=== PATIENT | male | born 1960 | race Caucasian/White ===

== ENCOUNTER 2021-05-19 16:38 | Observation (INO) ==
[2021-05-19] MEDS ORDERED: SODIUM CHLORIDE 0.9% 1000ML 1,000 ML IV SCH (17:30)
[2021-05-19] MEDS ORDERED: SODIUM CHLORIDE 0.9% 500 ML IV SCH (17:30)
[2021-05-19] MEDS ORDERED: OPTIRAY 320 125ml IV ONE (17:44)
--- NOTE | 2021-05-19 17:52 | XRay Report ---
SINGLE VIEW CHEST CLINICAL HISTORY: Generalized weakness. FINDINGS: 2 AP, portable, upright chest radiographs are compared to study dated 04/01/2014. The heart i s top normal for projection noting atherosclerotic calcification of the thoracic aorta. There is mild elevation of the right hemidiaphragm. The lungs and pleural spaces are clear. No pneumothorax is see n. The bony thorax is grossly intact. IMPRESSION: No active disease in the chest. ACT 112: Negative or not required by law. Electronically signed by: Jose Connors M.D. 05/19/2021 5:51 PM
[2021-05-19 18:10] LABS: Basophils # (auto) 0.04 K/uL (0-0.2); Basophils % (auto) 0.4 %; Eosinophils # (auto) 0.65 K/uL (0-0.5); Eosinophils % (auto) 6.8 %; Hematocrit (blood only) 44.3 % (42-52); Hemoglobin 15.1 g/dL (14.0-18.0); Immature Granulocytes # (auto) 0.03 K/uL (0.00-0.02); Immature Granulocytes % (auto) 0.3 %; Lymphocytes # (auto) 2.72 K/uL (1.2-3.4); Lymphocytes % (auto) 28.4 %; Mean Corpuscular Hemoglobin 30.7 pg (25-34); Mean Corpuscular Hgb Conc 34.1 g/dL (32-36); Mean Platelet Volume 9.3 fL (7.4-10.4); Monocytes % (auto) 12.5 %; Neutrophils # (auto) 4.94 K/uL (1.4-6.5); Neutrophils % (auto) 51.6 %; Platelet Count 246 K/uL (130-400); RDW Coefficient of Variation 12.6 % (11.5-14.5); RDW Standard Deviation 41.7 fL (36.4-46.3); Red Blood Count 4.92 M/uL (4.7-6.1); White Blood Count 9.58 K/uL (4.8-10.8)
--- NOTE | 2021-05-19 18:22 | CT Scan Report ---
UNENHANCED CT OF THE BRAIN; CT ANGIOGRAM OF THE BRAIN; CT ANGIOGRAM OF THE NECK CLINICAL HISTORY: Strokelike symptoms. COMPARISON STUDY: No priors. TECHNIQUE: Unenhanced axial CT scan of the brain is performed. Subsequently, following the IV adminis tration of 120 of Optiray 320, CT angiogram of the head and neck was performed from the aortic arch t o the vertex. Images are reviewed in the axial, sagittal, and coronal planes. 3-D MIPS images are cre ated and assessed. IV contrast was administered without complication. All measurements were calculate d based on NASCET criteria. A dose lowering technique was utilized adhering to the principles of ALA RA. CT DOSE: 1276.85 mGy.cm FINDINGS: Brain parenchyma: The brain parenchyma is normal in appearance. There is no hemorrhage, mass effect, or evidence of acute territorial ischemia by CT criteria. There is no evidence of enhancing mass lesi on on the angiogram phase images. The ventricles, sulci, and cisterns are normal in configuration. Gr ay-white matter differentiation is preserved. No extra-axial fluid collection is seen. Thoracic aorta: Visualized portions of the thoracic aorta are normal in caliber. The aortic arch demo nstrates standard 3-vessel anatomy. Right carotid arterial system: The right common carotid artery is widely patent, as are the right int ernal and external carotid arteries. Calcified plaque is noted in the carotid bulb. Left carotid arterial system: The left common carotid artery is widely patent, as are the left post graduate intern al and external carotid arteries. Calcified plaque is seen in the carotid bulb. Vertebral arteries: The vertebral arteries are widely patent bilaterally noting left-sided dominance. Subclavian arteries: Widely patent bilaterally. Intracranial vasculature: There is atherosclerotic calcification of the cavernous carotid and vertebr al arteries. The internal carotid arteries are patent at the skull base, as are the anterior and midd le cerebral arteries bilaterally. The vertebrobasilar system and posterior cerebral arteries are wide ly patent. The left vertebral artery is dominant. The right vertebral artery is diminutive. There is no aneurysm, high-grade stenosis, or focal vessel cut off seen throughout the intracranial circulatio n. Jugular veins: Patent bilaterally. Dural sinuses: Patent. Lung apices: Partially visualized upper lobe lung parenchyma appears clear. Soft tissues: The visualized pharyngeal soft tissues are normal in appearance noting angiographic pha se technique. The oropharyngeal airway appears widely patent. The salivary and thyroid glands are nor mal in appearance. No cervical lymphadenopathy is seen. Skeletal structures: The calvarium appears intact. The cervical spine is maintained noting multilevel spondylosis. No lytic or blastic lesion is seen. Orbits: The bony orbits are intact. Orbital contents are normal as visualized. Sinuses and mastoids: The paranasal sinuses are clear. The mastoid air cells are well pneumatized. IMPRESSION: 1 There is no hemorrhage, mass effect, or evidence of acute territorial ischemia by CT criteria. 2. Unremarkable CT angiogram of the brain. 3. Unremarkable CT angiogram of the neck. ACT 112: Negative or not required by law. Electronically signed by: Jose Connors M.D. 05/19/2021 6:21 PM
[2021-05-19 18:33] LABS: Alanine Aminotransferase 37 U/L (12-78); Albumin Level 3.9 gm/dl (3.4-5.0); Aspartate Aminotransferase 26 U/L (15-37); BUN Creatinine Ratio 10.3 (10-20); Blood Urea Nitrogen 11 mg/dl (7-18); Calcium 9.2 mg/dl (8.5-10.1); Carbon Dioxide 28 mmol/L (21-32); Chloride 105 mmol/L (98-107); Creatinine Clr Calc Pharmacy 94.5 ml/min; Est GFR (African American) 86.4 ml/min; Est GFR (Non-African American) 74.5 ml/min; Glucose 93 mg/dl (70-99); Magnesium 2.3 mg/dl (1.8-2.4); Potassium 3.9 mmol/L (3.5-5.1); Sodium 137 mmol/L (136-145)
[2021-05-19 18:44] LABS: Alkaline Phosphatase 69 U/L (45-117); Bilirubin,Total 0.5 mg/dl (0.2-1); Globulin 4.1 gm/dl (2.5-4.0); Troponin I < 0.015 ng/ml (0-0.045)
[2021-05-19] MEDS ORDERED: ASPIRIN CHEW 324 MG PO STA (19:23)
[2021-05-19] MEDS ORDERED: NICOTINE POLACRILEX 2 MG GUM MT PRN (20:47)
--- NOTE | 2021-05-19 20:47 | History & Physical Report ---
Date of Service May 19, 2021 Assessment & Plan (1) Expressive aphasia: Plan: Damian Medina is a 61-year-old male with no significant past medical history who presents for concerns of worsening word finding and speech difficulty over the last 36 hours. Expressive aphasia: -Seemingly improved upon presentation to ED -CT head demonstrating no hemorrhage, mass-effect, or evidence of acute ischemia -CTA head/neck unremarkable -[place] Telestroke called did not recommend TPA based of negative mostly resolved symptoms at that moment in time -MRI in AM -Lipid profile, and A1c in AM Diet: Regular CODE STATUS: Full code History of Present Illness Primary Care Provider: Clay Hillman MD Damian Medina is a 61-year-old male with no significant past medical history who presents for concerns of worsening word finding and speech difficulty over the last 36 hours. Started to notice that he was feeling off sometime afternoon, but generally felt nothing of it. It was not until earlier today when his noticed that he was having difficulty finding words, this caused him significant frustration as he knew the words that he was attempting to say but could not seemingly find them to verbalize. She mostly noticed that he was seemingly only having difficulty with some words, with the rest of his speech being unchanged. Notes that during the day he was feeling achy all over and questionably warm/febrile, but did not have a fever at that point. As a result of this he took a home COVID-19 test which he states come back as negative. As well as, tested negative for COVID-19 in the ED. While in ED, he noticed most of his speech had seemingly returned back to normal, but intermittently with seemingly random specific words he just would not be able to get them out. Denies any recent stressors, or changes. 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 Allergies Allergy/AdvReac Type Severity Reaction Status Date / Time No Known Allergies Allergy Mild NONE Unverified 05/19/21 18:09 Home Medications Medication Instructions Recorded Confirmed Type sildenafil 50 mg tablet 25 - 50 mg PO UD PRN 05/19/21 05/19/21 History Past Med/Surg History Social History Smoking Status: Former smoker Second Hand Exposure: No; Do You Dip or Chew Tobacco: Yes; Tobacco Cessation Education Requested by Patient: No Hx Alcohol Use: Yes Alcohol type: beer Hx Substance Use: No Preferred Language: American Communication Ability: Effective Supervisor [employer] Required: No Beliefs That Will Affect Care: None Current Living Situation: Spouse Other Information That Helps Us Care for You: No Feels Safe at Home: Yes Safety Concerns: Feels Safe At This Time Assistive Devices: Glasses Review of Systems 2 Review of Systems: All systems reviewed & are unremarkable except as noted in HPI & below Physical Exam Constitutional: WD/WN, vitals as above Eyes: PERRL, conjunctivae normal, anicteric sclerae Respiratory: normal respiratory effort, lungs clear to auscultation Auscultation: no crackles, no rales, no rhonchi and no wheezes Cardiovascular: Rate/Rhythm: regular rate and regular rhythm Heart Sounds: no gallop, no murmur and no cardiac rub Vessels: normal peripheral pulses; no JVD Extremities: no edema Gastrointestinal (Abdomen): Inspection/Auscultation: normal bowel sounds; abdomen not distended Percussion/Palpation: abdomen soft; abdomen nontender and no guarding Musculoskeletal: no cyanosis or clubbing, extremities motor strength 5/5 Skin: no rashes, warm and dry Neurologic: PERRL, EOMI, accommodation nl, no face palsy, no dysarthria CN's II-XI intact bilaterally and moves all extremities Psychiatric: Orientation: alert and oriented x 3 Results & Data Results & Data ([facility]) Vital Signs (Past 12 Hours) Vital Signs Temp Pulse Resp BP Pulse Ox 05/19/21 18:22 96 H 20 97 05/19/21 17:49 37.2 C 05/19/21 16:48 36.7 C 96 H 20 149/89 H 97 Laboratory Results 05/19/21 05/19/21 05/19/21 Range/Units 18:25 17:55 17:55 WBC 9.58 (4.8-10.8) K/uL RBC 4.92 (4.7-6.1) M/uL Hgb 15.1 (14.0-18.0) g/dL Hct 44.3 (42-52) % MCV 90.0 (80-100) fL MCH 30.7 (25-34) pg MCHC 34.1 (32-36) g/dL RDW Std Deviation 41.7 (36.4-46.3) fL RDW Coeff of Chris 12.6 (11.5-14.5) % Plt Count 246 (130-400) K/uL MPV 9.3 (7.4-10.4) fL Immature Gran % (Auto) 0.3 % Neut % (Auto) 51.6 % Lymph % (Auto) 28.4 % Ponce % (Auto) 12.5 % Eos % (Auto) 6.8 % Baso % (Auto) 0.4 % Neut # (Auto) 4.94 (1.4-6.5) K/uL Lymph # (Auto) 2.72 (1.2-3.4) K/uL Ponce # (Auto) 1.20 H (0.11-0.59) K/uL Eos # (Auto) 0.65 H (0-0.5) K/uL Baso # (Auto) 0.04 (0-0.2) K/uL Immature Gran # (Auto) 0.03 H (0.00-0.02) K/uL Sodium 137 (136-145) mmol/L Potassium 3.9 (3.5-5.1) mmol/L Chloride 105 (98-107) mmol/L Carbon Dioxide 28 (21-32) mmol/L Anion Gap 4.0 (3-11) BUN 11 (7-18) mg/dl Creatinine 1.07 (0.6-1.4) mg/dl Est Cr Clr Drug Dosing 94.5 ml/min Est GFR ( Amer) 86.4 ml/min Est GFR (Non-Af Amer) 74.5 ml/min BUN/Creatinine Ratio 10.3 (10-20) Glucose 93 (70-99) mg/dl POC Glucose 88 (70-99) mg/dl Calcium 9.2 (8.5-10.1) mg/dl Magnesium 2.3 (1.8-2.4) mg/dl Total Bilirubin 0.5 (0.2-1) mg/dl AST 26 (15-37) U/L ALT 37 (12-78) U/L Alkaline Phosphatase 69 (45-117) U/L Troponin I < 0.015 (0-0.045) ng/ml Total Protein 8.0 (6.4-8.2) gm/dl Albumin 3.9 (3.4-5.0) gm/dl Globulin 4.1 H (2.5-4.0) gm/dl Albumin/Globulin Ratio 1.0 (0.9-2) TSH 1.280 (0.300-4.500) uIu/ml COVID-19 Eval Order SARS-CoV-2 (PCR) (Negative) 05/19/21 05/19/21 Range/Units 17:49 17:49 WBC (4.8-10.8) K/uL RBC (4.7-6.1) M/uL Hgb (14.0-18.0) g/dL Hct (42-52) % MCV (80-100) fL MCH (25-34) pg MCHC (32-36) g/dL RDW Std Deviation (36.4-46.3) fL RDW Coeff of Chris (11.5-14.5) % Plt Count (130-400) K/uL MPV (7.4-10.4) fL Immature Gran % (Auto) % Neut % (Auto) % Lymph % (Auto) % Ponce % (Auto) % Eos % (Auto) % Baso % (Auto) % Neut # (Auto) (1.4-6.5) K/uL Lymph # (Auto) (1.2-3.4) K/uL Ponce # (Auto) (0.11-0.59) K/uL Eos # (Auto) (0-0.5) K/uL Baso # (Auto) (0-0.2) K/uL Immature Gran # (Auto) (0.00-0.02) K/uL Sodium (136-145) mmol/L Potassium (3.5-5.1) mmol/L Chloride (98-107) mmol/L Carbon Dioxide (21-32) mmol/L Anion Gap (3-11) BUN (7-18) mg/dl Creatinine (0.6-1.4) mg/dl Est Cr Clr Drug Dosing ml/min Est GFR ( Amer) ml/min Est GFR (Non-Af Amer) ml/min BUN/Creatinine Ratio (10-20) Glucose (70-99) mg/dl POC Glucose (70-99) mg/dl Calcium (8.5-10.1) mg/dl Magnesium (1.8-2.4) mg/dl Total Bilirubin (0.2-1) mg/dl AST (15-37) U/L ALT (12-78) U/L Alkaline Phosphatase (45-117) U/L Troponin I (0-0.045) ng/ml Total Protein (6.4-8.2) gm/dl Albumin (3.4-5.0) gm/dl Globulin (2.5-4.0) gm/dl Albumin/Globulin Ratio (0.9-2) TSH (0.300-4.500) uIu/ml COVID-19 Eval Order Covid19 at [facility] SARS-CoV-2 (PCR) NEGATIVE (Negative) Diagnostic Findings Impressions Chest X-Ray 05/19/21 17:21 SINGLE VIEW CHEST CLINICAL HISTORY: Generalized weakness. FINDINGS: 2 AP, portable, upright chest radiographs are compared to study dated 04/01/2014. The heart is top normal for projection noting atherosclerotic calcification of the thoracic aorta. There is mild elevation of the right hemidiaphragm. The lungs and pleural spaces are clear. No pneumothorax is seen. The bony thorax is grossly intact. IMPRESSION: No active disease in the chest. ACT 112: Negative or not required by law. Electronically signed by: Jose Connors M.D. 05/19/2021 5:[address] 05/19/21 17:[address] OF THE BRAIN; CT ANGIOGRAM OF THE BRAIN; CT ANGIOGRAM OF THE NECK CLINICAL HISTORY: Strokelike symptoms. COMPARISON STUDY: No priors. TECHNIQUE: Unenhanced axial CT scan of the brain is performed. Subsequently, following the IV administration of 120 of Optiray 320, CT angiogram of the head and neck was performed from the aortic arch to the vertex. Images are reviewed in the axial, sagittal, and coronal planes. 3-D MIPS images are created and assessed. IV contrast was administered without complication. All measurements were calculated based on NASCET criteria. A dose lowering technique was utilized adhering to the principles of ALARA. CT DOSE: 1276.85 mGy.cm FINDINGS: Brain parenchyma: The brain parenchyma is normal in appearance. There is no hemorrhage, mass effect, or evidence of acute territorial ischemia by CT criteria. There is no evidence of enhancing mass lesion on the angiogram phase images. The ventricles, sulci, and cisterns are normal in configuration. Infante- white matter differentiation is preserved. No extra-axial fluid collection is seen. Thoracic aorta: Visualized portions of the thoracic aorta are normal in caliber. The aortic arch demonstrates standard 3-vessel anatomy. Right carotid arterial system: The right common carotid artery is widely patent, as are the right internal and external carotid arteries. Calcified plaque is noted in the carotid bulb. Left carotid arterial system: The left common carotid artery is widely patent, as are the left internal and external carotid arteries. Calcified plaque is seen in the carotid bulb. Vertebral arteries: The vertebral arteries are widely patent bilaterally noting left-sided dominance. Subclavian arteries: Widely patent bilaterally. Intracranial vasculature: There is atherosclerotic calcification of the cavernous carotid and vertebral arteries. The internal carotid arteries are patent at the skull base, as are the anterior and middle cerebral arteries bilaterally. The vertebrobasilar system and posterior cerebral arteries are widely patent. The left vertebral artery is dominant. The right vertebral artery is diminutive. There is no aneurysm, high-grade stenosis, or focal vessel cut off seen throughout the intracranial circulation. Jugular veins: Patent bilaterally. Dural sinuses: Patent. Lung apices: Partially visualized upper lobe lung parenchyma appears clear. Soft tissues: The visualized pharyngeal soft tissues are normal in appearance noting angiographic phase technique. The oropharyngeal airway appears widely patent. The salivary and thyroid glands are normal in appearance. No cervical lymphadenopathy is seen. Skeletal structures: The calvarium appears intact. The cervical spine is maintained noting multilevel spondylosis. No lytic or blastic lesion is seen. Orbits: The bony orbits are intact. Orbital contents are normal as visualized. Sinuses and mastoids: The paranasal sinuses are clear. The mastoid air cells are well pneumatized. IMPRESSION: 1 There is no hemorrhage, mass effect, or evidence of acute territorial ischemia by CT criteria. 2. Unremarkable CT angiogram of the brain. 3. Unremarkable CT angiogram of the neck. ACT 112: Negative or not required by law. Electronically signed by: Jose Connors M.D. 05/19/2021 6:21 PM Head CTA 05/19/21 17:[address] OF THE BRAIN; CT ANGIOGRAM OF THE BRAIN; CT ANGIOGRAM OF THE NECK CLINICAL HISTORY: Strokelike symptoms. COMPARISON STUDY: No priors. TECHNIQUE: Unenhanced axial CT scan of the brain is performed. Subsequently, following the IV administration of 120 of Optiray 320, CT angiogram of the head and neck was performed from the aortic arch to the vertex. Images are reviewed in the axial, sagittal, and coronal planes. 3-D MIPS images are created and assessed. IV contrast was administered without complication. All measurements were calculated based on NASCET criteria. A dose lowering technique was utilized adhering to the principles of ALARA. CT DOSE: 1276.85 mGy.cm FINDINGS: Brain parenchyma: The brain parenchyma is normal in appearance. There is no hemorrhage, mass effect, or evidence of acute territorial ischemia by CT criteria. There is no evidence of enhancing mass lesion on the angiogram phase images. The ventricles, sulci, and cisterns are normal in configuration. Infante- white matter differentiation is preserved. No extra-axial fluid collection is seen. Thoracic aorta: Visualized portions of the thoracic aorta are normal in caliber. The aortic arch demonstrates standard 3-vessel anatomy. Right carotid arterial system: The right common carotid artery is widely patent, as are the right internal and external carotid arteries. Calcified plaque is noted in the carotid bulb. Left carotid arterial system: The left common carotid artery is widely patent, as are the left internal and external carotid arteries. Calcified plaque is seen in the carotid bulb. Vertebral arteries: The vertebral arteries are widely patent bilaterally noting left-sided dominance. Subclavian arteries: Widely patent bilaterally. Intracranial vasculature: There is atherosclerotic calcification of the cavernous carotid and vertebral arteries. The internal carotid arteries are patent at the skull base, as are the anterior and middle cerebral arteries bilaterally. The vertebrobasilar system and posterior cerebral arteries are widely patent. The left vertebral artery is dominant. The right vertebral artery is diminutive. There is no aneurysm, high-grade stenosis, or focal vessel cut off seen throughout the intracranial circulation. Jugular veins: Patent bilaterally. Dural sinuses: Patent. Lung apices: Partially visualized upper lobe lung parenchyma appears clear. Soft tissues: The visualized pharyngeal soft tissues are normal in appearance noting angiographic phase technique. The oropharyngeal airway appears widely patent. The salivary and thyroid glands are normal in appearance. No cervical lymphadenopathy is seen. Skeletal structures: The calvarium appears intact. The cervical spine is maintained noting multilevel spondylosis. No lytic or blastic lesion is seen. Orbits: The bony orbits are intact. Orbital contents are normal as visualized. Sinuses and mastoids: The paranasal sinuses are clear. The mastoid air cells are well pneumatized. IMPRESSION: 1 There is no hemorrhage, mass effect, or evidence of acute territorial ischemia by CT criteria. 2. Unremarkable CT angiogram of the brain. 3. Unremarkable CT angiogram of the neck. ACT 112: Negative or not required by law. Electronically signed by: Jose Connors M.D. 05/19/2021 6:21 PM Neck CTA 05/19/21 17:[address] OF THE BRAIN; CT ANGIOGRAM OF THE BRAIN; CT ANGIOGRAM OF THE NECK CLINICAL HISTORY: Strokelike symptoms. COMPARISON STUDY: No priors. TECHNIQUE: Unenhanced axial CT scan of the brain is performed. Subsequently, following the IV administration of 120 of Optiray 320, CT angiogram of the head and neck was performed from the aortic arch to the vertex. Images are reviewed in the axial, sagittal, and coronal planes. 3-D MIPS images are created and assessed. IV contrast was administered without complication. All measurements were calculated based on NASCET criteria. A dose lowering technique was utilized adhering to the principles of ALARA. CT DOSE: 1276.85 mGy.cm FINDINGS: Brain parenchyma: The brain parenchyma is normal in appearance. There is no hemorrhage, mass effect, or evidence of acute territorial ischemia by CT criteria. There is no evidence of enhancing mass lesion on the angiogram phase images. The ventricles, sulci, and cisterns are normal in configuration. Infante- white matter differentiation is preserved. No extra-axial fluid collection is seen. Thoracic aorta: Visualized portions of the thoracic aorta are normal in caliber. The aortic arch demonstrates standard 3-vessel anatomy. Right carotid arterial system: The right common carotid artery is widely patent, as are the right internal and external carotid arteries. Calcified plaque is noted in the carotid bulb. Left carotid arterial system: The left common carotid artery is widely patent, as are the left internal and external carotid arteries. Calcified plaque is seen in the carotid bulb. Vertebral arteries: The vertebral arteries are widely patent bilaterally noting left-sided dominance. Subclavian arteries: Widely patent bilaterally. Intracranial vasculature: There is atherosclerotic calcification of the cavernous carotid and vertebral arteries. The internal carotid arteries are patent at the skull base, as are the anterior and middle cerebral arteries bilaterally. The vertebrobasilar system and posterior cerebral arteries are widely patent. The left vertebral artery is dominant. The right vertebral artery is diminutive. There is no aneurysm, high-grade stenosis, or focal vessel cut off seen throughout the intracranial circulation. Jugular veins: Patent bilaterally. Dural sinuses: Patent. Lung apices: Partially visualized upper lobe lung parenchyma appears clear. Soft tissues: The visualized pharyngeal soft tissues are normal in appearance noting angiographic phase technique. The oropharyngeal airway appears widely patent. The salivary and thyroid glands are normal in appearance. No cervical lymphadenopathy is seen. Skeletal structures: The calvarium appears intact. The cervical spine is maintained noting multilevel spondylosis. No lytic or blastic lesion is seen. Orbits: The bony orbits are intact. Orbital contents are normal as visualized. Sinuses and mastoids: The paranasal sinuses are clear. The mastoid air cells are well pneumatized. IMPRESSION: 1 There is no hemorrhage, mass effect, or evidence of acute territorial ischemia by CT criteria. 2. Unremarkable CT angiogram of the brain. 3. Unremarkable CT angiogram of the neck. ACT 112: Negative or not required by law. Electronically signed by: Jose Connors M.D. 05/19/2021 6:21 PM Medications Administered Home Medication List Medication Instructions Recorded sildenafil 50 mg tablet 25 - 50 mg PO UD PRN 05/19/21 Supervising Physician Co-Signing Physician Notes Attending addendum: I have physically seen this patient, have supervised the medical residents activities, and agree with the H&P unless as otherwise noted. Assessment and Plan: Expressive aphasia- Episode resolved prior to arrival to the ED CT head negative CTA head neck negative [facility] telestroke did not recommend TPA due to resolution of symptoms Stroke without TPA order set MRI brain without contrast in a.m. Consult PT/OT/speech/neurology Check a fasting lipid panel and hemoglobin A1c in a.m. Remaining orders and notations as noted Resident Activity Tracking Resident Involvement: Resident Care Provided Care Provided: Adult [facility]
--- NOTE | 2021-05-19 22:10 | Emergency Department Note ---
Impression & Plan Expressive aphasia ED Provider Note INFORMANT: Patient ED PROVIDER(S): Marcel Wyman MD CHIEF COMPLAINT: Expressive aphasia PLAN: Disposition: Admitted Condition: Good Outpatient prescription management: none Referral: None MEDICAL DECISION MAKING: Patient presented to emergency department complaining of difficulty speaking. He was made a stroke alert. The patient had a nonfocal examination and was not experiencing expressive aphasia while here in the emergency department. The patient had an unremarkable head CT and angiography testing. A consult was placed with Dr. Ojeda of [facility]. We discussed the case. In light of his minimal symptoms and the fact that they had resolved at this point he did not recommend TPA. She has for the patient to be monitored. We agreed on fluids, aspirin, and stroke work-up in the hospital. Consultation was made with Dr. Rico Carroll of the [facility] service. Patient was evaluated in the ER for further management. Of testing negative. Triage Nursing notes reviewed and agree them. Vital Signs: reviewed and remarkable for hypertension Differential diagnosis: CVA, TIA, COVID-19, nfection, dehydration, metabolic abnormality, hypo/hyperglycemia, electrolyte disturbance, anemia, hypoxia, cardiac sources, intracerebral event, toxicologic, neurologic, as well as other pathologies. Diagnostics interpreted by me: ECG: Twelve-lead ECG reveals sinus rhythm with PACs at 85 bpm. Noted elevation or depression. No PVCs. Normal axis. Cardiac Monitoring: Cardiac monitoring ordered by me: The patient was placed on continuous cardiac monitoring and observed. It revealed a normal sinus rhythm at 75 beats per minute without dysrhythmia. Imaging studies: CT and CT angiography as noted above. I refer you to the EMR for further details. HPI: The patient is a 61 year old male who presents to the Emergency Room with complaints of difficulty speaking. This started about 2 hours prior to arrival and is intermittent. The patient notes he is having trouble getting his words out. He was concerned about a stroke and came to the ER for evaluation.. The patient also notes the following associated symptoms, feeling achy and flulike over the last few days. The patient did have a Covid exposure 2 weeks ago. He did take a Covid test at home and it was negative. The patient has taken no medication for relieving factors. Current pain is rated as 0/10. No prior history of stroke. Pt denies LOC, headache, chills, diaphoresis, visual changes, neck pain, chest pain, breathing difficulties, nausea, vomiting, abdominal pain, back pain, melena, hematochezia, urinary symptoms, numbness, weakness, lymphadenopathy, rash, or other complaints. ROS: See above HPI for pertinent positives & negatives. A total of 10 systems reviewed and were otherwise negative. 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 Oropharynx unremarkable. EYES: Normal conjunctiva. Sclera non-icteric. NECK: Inspection normal. Non-tender. Supple. No nuchal rigidity. FROM. No masses. RESPIRATORY: Clear to auscultation. No wheezes. No rales. Normal respiratory effort. CARDIAC: Normal rate. Normal rhythm. No murmurs. No rubs. Extremities warm and well perfused. Pulses equal. No JVD. GI: Soft, non-distended. No tenderness to palpation. No rebound or guarding. No masses. RECTAL: Deferred. MUSCULOSKELETAL: Atraumatic. Chest examination reveals no tenderness. The back is symmetrical on inspection without obvious abnormality. There is no CVA tenderness to palpation. No joint edema. LOWER EXTREMITIES: Calves are equal size bilaterally and non-tender. No edema. No discoloration. NEURO: Normal sensorium. No sensory or motor deficits noted. Cranial nerves II through XII intact. No drift. Normal rapid alternating movements. SKIN: No rash or jaundice noted. Marcel Wyman MD Past Med/Surg History Social History Smoking Status: Never smoker Preferred Language: Filipino Feels Safe at Home: Yes Allergies Allergies Allergy/AdvReac Type Severity Reaction Status Date / Time No Known Allergies Allergy Mild NONE Unverified 05/19/21 18:09 Home Meds Home Medications Medication Instructions Recorded Confirmed sildenafil 50 mg tablet 25 - 50 mg PO UD PRN 05/19/21 05/19/21 Results & Data (ED) Vital Signs Vital Signs - 24 hr 05/19/21 16:48 05/19/21 17:49 05/19/21 18:22 Temperature 36.7 C 37.2 C Temperature Source Oral Oral Pulse Rate 96 H 96 H Pulse Rate from SpO2 Sensor Pulse Rhythm Regular Regular Pulse Strength Normal Respiratory Rate 20 20 Respiratory Effort / Characteristics Non-Labored Respiratory Depth Normal Respiratory Pattern Regular Blood Pressure 149/89 H Blood Pressure Mean 109 Blood Pressure Position Sitting Pulse Oximetry 97 97 Oxygen Delivery Method Room Air Room Air Sepsis Recent Fever Within 48 Hours No Sepsis New/Unexplained Change in Mental Status N/A Sepsis Action Taken by Nursing No Action Required 05/19/21 18:30 05/19/21 19:00 05/19/21 19:30 Temperature Temperature Source Pulse Rate 76 79 74 Pulse Rate from SpO2 Sensor 76 79 75 Pulse Rhythm Pulse Strength Respiratory Rate 15 13 15 Respiratory Effort / Characteristics Respiratory Depth Respiratory Pattern Blood Pressure 171/96 H 174/107 H 161/103 H Blood Pressure Mean 121 129 122 Blood Pressure Position Pulse Oximetry 97 98 96 Oxygen Delivery Method Room Air Room Air Sepsis Recent Fever Within 48 Hours Sepsis New/Unexplained Change in Mental Status Sepsis Action Taken by Nursing 05/19/21 19:44 05/19/21 20:00 05/19/21 20:30 Temperature Temperature Source Pulse Rate 80 78 82 Pulse Rate from SpO2 Sensor 80 78 79 Pulse Rhythm Pulse Strength Respiratory Rate 23 21 17 Respiratory Effort / Characteristics Respiratory Depth Respiratory Pattern Blood Pressure 168/98 H 164/98 H 188/116 H Blood Pressure Mean 121 120 140 Blood Pressure Position Pulse Oximetry 97 97 99 Oxygen Delivery Method Room Air Sepsis Recent Fever Within 48 Hours Sepsis New/Unexplained Change in Mental Status Sepsis Action Taken by Nursing 05/19/21 21:00 05/19/21 21:30 05/19/21 22:00 Temperature Temperature Source Pulse Rate 75 75 70 Pulse Rate from SpO2 Sensor 75 76 70 Pulse Rhythm Pulse Strength Respiratory Rate 13 19 11 L Respiratory Effort / Characteristics Respiratory Depth Respiratory Pattern Blood Pressure 180/100 H 184/109 H 173/97 H Blood Pressure Mean 126 134 122 Blood Pressure Position Pulse Oximetry 97 97 96 Oxygen Delivery Method Room Air Room Air Sepsis Recent Fever Within 48 Hours Sepsis New/Unexplained Change in Mental Status Sepsis Action Taken by Nursing Laboratory Data Result diagrams: 05/19/21 17:55 05/19/21 17:55 Lab Results 05/19/21 05/19/21 05/19/21 Range/Units 17:49 17:49 17:55 WBC (4.8-10.8) K/uL RBC (4.7-6.1) M/uL Hgb (14.0-18.0) g/dL Hct (42-52) % MCV (80-100) fL MCH (25-34) pg MCHC (32-36) g/dL RDW Std Deviation (36.4-46.3) fL RDW Coeff of Chris (11.5-14.5) % Plt Count (130-400) K/uL MPV (7.4-10.4) fL Immature Gran % (Auto) % Neut % (Auto) % Lymph % (Auto) % [place] % (Auto) % Eos % (Auto) % Baso % (Auto) % Neut # (Auto) (1.4-6.5) K/uL Lymph # (Auto) (1.2-3.4) K/uL [place] # (Auto) (0.11-0.59) K/uL Eos # (Auto) (0-0.5) K/uL Baso # (Auto) (0-0.2) K/uL Immature Gran # (Auto) (0.00-0.02) K/uL Sodium 137 (136-145) mmol/L Potassium 3.9 (3.5-5.1) mmol/L Chloride 105 (98-107) mmol/L Carbon Dioxide 28 (21-32) mmol/L Anion Gap 4.0 (3-11) BUN 11 (7-18) mg/dl Creatinine 1.07 (0.6-1.4) mg/dl Est Cr Clr Drug Dosing 94.5 ml/min Est GFR ( Amer) 86.4 ml/min Est GFR (Non-Af Amer) 74.5 ml/min BUN/Creatinine Ratio 10.3 (10-20) Glucose 93 (70-99) mg/dl POC Glucose (70-99) mg/dl Calcium 9.2 (8.5-10.1) mg/dl Magnesium 2.3 (1.8-2.4) mg/dl Total Bilirubin 0.5 (0.2-1) mg/dl AST 26 (15-37) U/L ALT 37 (12-78) U/L Alkaline Phosphatase 69 (45-117) U/L Troponin I < 0.015 (0-0.045) ng/ml Total Protein 8.0 (6.4-8.2) gm/dl Albumin 3.9 (3.4-5.0) gm/dl Globulin 4.1 H (2.5-4.0) gm/dl Albumin/Globulin Ratio 1.0 (0.9-2) TSH 1.280 (0.300-4.500) uIu/ml COVID-19 Eval Order Covid19 at [facility] SARS-CoV-2 (PCR) NEGATIVE (Negative) 05/19/21 05/19/21 Range/Units 17:55 18:25 WBC 9.58 (4.8-10.8) K/uL RBC 4.92 (4.7-6.1) M/uL Hgb 15.1 (14.0-18.0) g/dL Hct 44.3 (42-52) % MCV 90.0 (80-100) fL MCH 30.7 (25-34) pg MCHC 34.1 (32-36) g/dL RDW Std Deviation 41.7 (36.4-46.3) fL RDW Coeff of Chris 12.6 (11.5-14.5) % Plt Count 246 (130-400) K/uL MPV 9.3 (7.4-10.4) fL Immature Gran % (Auto) 0.3 % Neut % (Auto) 51.6 % Lymph % (Auto) 28.4 % [place] % (Auto) 12.5 % Eos % (Auto) 6.8 % Baso % (Auto) 0.4 % Neut # (Auto) 4.94 (1.4-6.5) K/uL Lymph # (Auto) 2.72 (1.2-3.4) K/uL [place] # (Auto) 1.20 H (0.11-0.59) K/uL Eos # (Auto) 0.65 H (0-0.5) K/uL Baso # (Auto) 0.04 (0-0.2) K/uL Immature Gran # (Auto) 0.03 H (0.00-0.02) K/uL Sodium (136-145) mmol/L Potassium (3.5-5.1) mmol/L Chloride (98-107) mmol/L Carbon Dioxide (21-32) mmol/L Anion Gap (3-11) BUN (7-18) mg/dl Creatinine (0.6-1.4) mg/dl Est Cr Clr Drug Dosing ml/min Est GFR ( Amer) ml/min Est GFR (Non-Af Amer) ml/min BUN/Creatinine Ratio (10-20) Glucose (70-99) mg/dl POC Glucose 88 (70-99) mg/dl Calcium (8.5-10.1) mg/dl Magnesium (1.8-2.4) mg/dl Total Bilirubin (0.2-1) mg/dl AST (15-37) U/L ALT (12-78) U/L Alkaline Phosphatase (45-117) U/L Troponin I (0-0.045) ng/ml Total Protein (6.4-8.2) gm/dl Albumin (3.4-5.0) gm/dl Globulin (2.5-4.0) gm/dl Albumin/Globulin Ratio (0.9-2) TSH (0.300-4.500) uIu/ml COVID-19 Eval Order SARS-CoV-2 (PCR) (Negative) Administered Medications Sodium Chloride (Nss 1000ml) 1,000 mls @ 125 mls/hr IV .Q8H ISABEL Stop: 05/20/21 01:29 Last Admin: 05/19/21 20:02 Dose: 125 mls/hr Documented by: [id number] Discontinued Medications Aspirin (Aspirin Chew 324 Mg) 324 mg PO NOW STA Stop: 05/19/21 19:24 Last Admin: 05/19/21 19:58 Dose: 324 mg Documented by: [id number] Sodium Chloride (Nss) 500 mls @ 999 mls/hr IV .Q31M ISABEL Stop: 05/19/21 18:00 Last Infusion: 05/19/21 20:02 Dose: 0 mls/hr Documented by: [id number] Admin: 05/19/21 18:29 Dose: 999 mls/hr Documented by: [id number] Ioversol (Optiray 320 125ml) 120 ml IV ONCE ONE Stop: 05/19/21 17:45 Last Admin: 05/19/21 17:44 Dose: 120 ml Documented by: [id number] Imaging Data Radiologist's Impression: Chest X-Ray 05/19/21 17:21 SINGLE VIEW CHEST CLINICAL HISTORY: Generalized weakness. FINDINGS: 2 AP, portable, upright chest radiographs are compared to study dated 04/01/2014. The heart is top normal for projection noting atherosclerotic calcification of the thoracic aorta. There is mild elevation of the right hemidiaphragm. The lungs and pleural spaces are clear. No pneumothorax is seen. The bony thorax is grossly intact. IMPRESSION: No active disease in the chest. ACT 112: Negative or not required by law. Electronically signed by: Jose Connors M.D. 05/19/2021 5:[address] 05/19/21 17:[address] OF THE BRAIN; CT ANGIOGRAM OF THE BRAIN; CT ANGIOGRAM OF THE NECK CLINICAL HISTORY: Strokelike symptoms. COMPARISON STUDY: No priors. TECHNIQUE: Unenhanced axial CT scan of the brain is performed. Subsequently, following the IV administration of 120 of Optiray 320, CT angiogram of the head and neck was performed from the aortic arch to the vertex. Images are reviewed in the axial, sagittal, and coronal planes. 3-D MIPS images are created and assessed. IV contrast was administered without complication. All measurements were calculated based on NASCET criteria. A dose lowering technique was utilized adhering to the principles of ALARA. CT DOSE: 1276.85 mGy.cm FINDINGS: Brain parenchyma: The brain parenchyma is normal in appearance. There is no hemorrhage, mass effect, or evidence of acute territorial ischemia by CT criteria. There is no evidence of enhancing mass lesion on the angiogram phase images. The ventricles, sulci, and cisterns are normal in configuration. Infante- white matter differentiation is preserved. No extra-axial fluid collection is seen. Thoracic aorta: Visualized portions of the thoracic aorta are normal in caliber. The aortic arch demonstrates standard 3-vessel anatomy. Right carotid arterial system: The right common carotid artery is widely patent, as are the right internal and external carotid arteries. Calcified plaque is noted in the carotid bulb. Left carotid arterial system: The left common carotid artery is widely patent, as are the left internal and external carotid arteries. Calcified plaque is seen in the carotid bulb. Vertebral arteries: The vertebral arteries are widely patent bilaterally noting left-sided dominance. Subclavian arteries: Widely patent bilaterally. Intracranial vasculature: There is atherosclerotic calcification of the malik nous carotid and vertebral arteries. The internal carotid arteries are patent at the skull base, as are the anterior and middle cerebral arteries bilaterally. The vertebrobasilar system and posterior cerebral arteries are widely patent. The left vertebral artery is dominant. The right vertebral artery is diminutive. There is no aneurysm, high-grade stenosis, or focal vessel cut off seen throughout the intracranial circulation. Jugular veins: Patent bilaterally. Dural sinuses: Patent. Lung apices: Partially visualized upper lobe lung parenchyma appears clear. Soft tissues: The visualized pharyngeal soft tissues are normal in appearance noting angiographic phase technique. The oropharyngeal airway appears widely patent. The salivary and thyroid glands are normal in appearance. No cervical lymphadenopathy is seen. Skeletal structures: The calvarium appears intact. The cervical spine is maintained noting multilevel spondylosis. No lytic or blastic lesion is seen. Orbits: The bony orbits are intact. Orbital contents are normal as visualized. Sinuses and mastoids: The paranasal sinuses are clear. The mastoid air cells are well pneumatized. IMPRESSION: 1 There is no hemorrhage, mass effect, or evidence of acute territorial ischemia by CT criteria. 2. Unremarkable CT angiogram of the brain. 3. Unremarkable CT angiogram of the neck. ACT 112: Negative or not required by law. Electronically signed by: Jose Connors M.D. 05/19/2021 6:21 PM Head CTA 05/19/21 17:[address] OF THE BRAIN; CT ANGIOGRAM OF THE BRAIN; CT ANGIOGRAM OF THE NECK CLINICAL HISTORY: Strokelike symptoms. COMPARISON STUDY: No priors. TECHNIQUE: Unenhanced axial CT scan of the brain is performed. Subsequently, following the IV administration of 120 of Optiray 320, CT angiogram of the head and neck was performed from the aortic arch to the vertex. Images are reviewed in the axial, sagittal, and coronal planes. 3-D MIPS images are created and assessed. IV contrast was administered without complication. All measurements were calculated based on NASCET criteria. A dose lowering technique was utilized adhering to the principles of ALARA. CT DOSE: 1276.85 mGy.cm FINDINGS: Brain parenchyma: The brain parenchyma is normal in appearance. There is no hemorrhage, mass effect, or evidence of acute territorial ischemia by CT criteria. There is no evidence of enhancing mass lesion on the angiogram phase images. The ventricles, sulci, and cisterns are normal in configuration. Infante- white matter differentiation is preserved. No extra-axial fluid collection is seen. Thoracic aorta: Visualized portions of the thoracic aorta are normal in caliber. The aortic arch demonstrates standard 3-vessel anatomy. Right carotid arterial system: The right common carotid artery is widely patent, as are the right internal and external carotid arteries. Calcified plaque is noted in the carotid bulb. Left carotid arterial system: The left common carotid artery is widely patent, as are the left internal and external carotid arteries. Calcified plaque is seen in the carotid bulb. Vertebral arteries: The vertebral arteries are widely patent bilaterally noting left-sided dominance. Subclavian arteries: Widely patent bilaterally. Intracranial vasculature: There is atherosclerotic calcification of the cavernous carotid and vertebral arteries. The internal carotid arteries are patent at the skull base, as are the anterior and middle cerebral arteries bilaterally. The vertebrobasilar system and posterior cerebral arteries are widely patent. The left vertebral artery is dominant. The right vertebral artery is diminutive. There is no aneurysm, high-grade stenosis, or focal vessel cut off seen throughout the intracranial circulation. Jugular veins: Patent bilaterally. Dural sinuses: Patent. Lung apices: Partially visualized upper lobe lung parenchyma appears clear. Soft tissues: The visualized pharyngeal soft tissues are normal in appearance noting angiographic phase technique. The oropharyngeal airway appears widely pat ent. The salivary and thyroid glands are normal in appearance. No cervical lymphadenopathy is seen. Skeletal structures: The calvarium appears intact. The cervical spine is m aintained noting multilevel spondylosis. No lytic or blastic lesion is seen. Orbits: The bony orbits are intact. Orbital contents are normal as visualized. Sinuses and mastoids: The paranasal sinuses are clear. The mastoid air cells are well pneumatized. IMPRESSION: 1 There is no hemorrhage, mass effect, or evidence of acute territorial ischemia by CT criteria. 2. Unremarkable CT angiogram of the brain. 3. Unremarkable CT angiogram of the neck. ACT 112: Negative or not required by law. Electronically signed by: Jose Connors M.D. 05/19/2021 6:21 PM Neck CTA 05/19/21 17:[address] OF THE BRAIN; CT ANGIOGRAM OF THE BRAIN; CT ANGIOGRAM OF THE NECK CLINICAL HISTORY: Strokelike symptoms. COMPARISON STUDY: No priors. TECHNIQUE: Unenhanced axial CT scan of the brain is performed. Subsequently, following the IV administration of 120 of Optiray 320, CT angiogram of the head and neck was performed from the aortic arch to the vertex. Images are reviewed in the axial, sagittal, and coronal planes. 3-D MIPS images are created and assessed. IV contrast was administered without complication. All measurements were calculated based on NASCET criteria. A dose lowering technique was utilized adhering to the principles of ALARA. CT DOSE: 1276.85 mGy.cm FINDINGS: Brain parenchyma: The brain parenchyma is normal in appearance. There is no hemorrhage, mass effect, or evidence of acute territorial ischemia by CT criteria. There is no evidence of enhancing mass lesion on the angiogram phase images. The ventricles, sulci, and cisterns are normal in configuration. Infante- white matter differentiation is preserved. No extra-axial fluid collection is seen. Thoracic aorta: Visualized portions of the thoracic aorta are normal in caliber. The aortic arch demonstrates standard 3-vessel anatomy. Right carotid arterial system: The right common carotid artery is widely patent, as are the right internal and external carotid arteries. Calcified plaque is noted in the carotid bulb. Left carotid arterial system: The left common carotid artery is widely patent, as are the left internal and external carotid arteries. Calcified plaque is seen in the carotid bulb. Vertebral arteries: The vertebral arteries are widely patent bilaterally noting left-sided dominance. Subclavian arteries: Widely patent bilaterally. Intracranial vasculature: There is atherosclerotic calcification of the cavernous carotid and vertebral arteries. The internal carotid arteries are patent at the skull base, as are the anterior and middle cerebral arteries bilaterally. The vertebrobasilar system and posterior cerebral arteries are widely patent. The left vertebral artery is dominant. The right vertebral artery is diminutive. There is no aneurysm, high-grade stenosis, or focal vessel cut off seen throughout the intracranial circulation. Jugular veins: Patent bilaterally. Dural sinuses: Patent. Lung apices: Partially visualized upper lobe lung parenchyma appears clear. Soft tissues: The visualized pharyngeal soft tissues are normal in appearance noting angiographic phase technique. The oropharyngeal airway appears widely patent. The salivary and thyroid glands are normal in appearance. No cervical lymphadenopathy is seen. Skeletal structures: The calvarium appears intact. The cervical spine is maintained noting multilevel spondylosis. No lytic or blastic lesion is seen. Orbits: The bony orbits are intact. Orbital contents are normal as visualized. Sinuses and mastoids: The paranasal sinuses are clear. The mastoid air cells are well pneumatized. IMPRESSION: 1 There is no hemorrhage, mass effect, or evidence of acute territorial ischemia by CT criteria. 2. Unremarkable CT angiogram of the brain. 3. Unremarkable CT angiogram of the neck. ACT 112: Negative or not required by law. Electronically signed by: Jose Connors M.D. 05/19/2021 6:21 PM Discharge Plan Visit Data Chief Complaint: Illness Stated Complaint: BODY ACHES, FEVER, UNABLE TO MAKE WORDS ED Provider: Marcel Wymna Discharge Problem: Expressive aphasia Forms Stand Alone Forms: [facility] [employer] Prescriptions Prescriptions: No Action sildenafil 50 mg tablet 25 - 50 mg PO UD PRN (Reason: Edema) RF: 0 Referrals Referrals: Clay Hillman MD [Primary Care Provider] -
[2021-05-19] MEDS ORDERED: NITROGLYCERIN SL 0.4 MG/TAB TAB SL PRN (22:52)
[2021-05-19] MEDS ORDERED: MAGNESIUM HYDROXIDE SUSP 30 ML UDC PO PRN (22:52)
[2021-05-19] MEDS ORDERED: PHARMACIST DISCHARGE MED REC CONSULT PRN (22:52)
[2021-05-19] MEDS ORDERED: ONDANSETRON INJ 2 MG/ML 2 ML VIAL IV PRN (22:52)
[2021-05-19] MEDS ORDERED: MoRPHine SULFATE 2 MG/ML CARP IV PRN (22:52)
[2021-05-19] MEDS ORDERED: POLYETHYLENE (MIRALAX) 17 GM PACK PO PRN (22:52)
[2021-05-19] MEDS ORDERED: ALUMINUM/MAGNESIUM SUSP 30 ML UDC PO PRN (22:52)
[2021-05-19] MEDS: ACETAMINOPHEN 325 MG TAB PO PRN (23:45)
[2021-05-20] MEDS ORDERED: IBUPROFEN 800 MG TAB PO ONE (00:48)
[2021-05-20 08:48] LABS: Basophils # (auto) 0.02 K/uL (0-0.2); Basophils % (auto) 0.3 %; Eosinophils # (auto) 0.53 K/uL (0-0.5); Eosinophils % (auto) 6.6 %; Hematocrit (blood only) 42.2 % (42-52); Hemoglobin 14.3 g/dL (14.0-18.0); Immature Granulocytes # (auto) 0.05 K/uL (0.00-0.02); Immature Granulocytes % (auto) 0.6 %; Lymphocytes # (auto) 2.54 K/uL (1.2-3.4); Lymphocytes % (auto) 31.8 %; Mean Corpuscular Hemoglobin 30.3 pg (25-34); Mean Corpuscular Hgb Conc 33.9 g/dL (32-36); Mean Corpuscular Volume 89.4 fL (80-100); Mean Platelet Volume 9.3 fL (7.4-10.4); Monocytes # (auto) 0.92 K/uL (0.11-0.59); Monocytes % (auto) 11.5 %; Neutrophils # (auto) 3.94 K/uL (1.4-6.5); Neutrophils % (auto) 49.2 %; Platelet Count 216 K/uL (130-400); RDW Coefficient of Variation 12.5 % (11.5-14.5); RDW Standard Deviation 40.3 fL (36.4-46.3); Red Blood Count 4.72 M/uL (4.7-6.1)
[2021-05-20 09:17] LABS: Calcium 9.1 mg/dl (8.5-10.1); Creatinine Clr Calc Pharmacy 103.7 ml/min; Est GFR (African American) 96.1 ml/min; Est GFR (Non-African American) 82.9 ml/min; Potassium 4.1 mmol/L (3.5-5.1)
[2021-05-20 10:00] LABS: Estimated Average Glucose 111 mg/dl; Hemoglobin A1C 5.5 % (4.5-5.6)
[2021-05-20 10:23] LABS: Appearance Urine Clear (Clear); Bilirubin Urine Negative (Negative); Blood Urine Negative (Negative); Color Urine Yellow; Glucose Urine UA Negative (Negative); Ketones Urine Negative (Negative); Leukocyte Esterase Urine Negative (Negative); Nitrite Urine Negative (Negative); Protein Urine Negative (Negative); Specific Gravity Urine 1.004 (1.000-1.030); Urobilinogen Urine Negative (Negative)
--- NOTE | 2021-05-20 11:43 | Hospitalist Progress Note ---
Date of Service May 20, 2021 Assessment & Plan (1) Expressive aphasia: Plan: MRI brain negative for stroke Ongoing symptoms of mild expressive dysphasia No explanation from lab work - mildly elevated inflammatory markers but not concerning for his age Blood cultures due to fever taken but no WBC or procalcitonin elevation to suggest this is a cause Initial lyme and anaplasmosis testing negative, PCR outstanding but labs not suggestive of this. Given lack of explanation (possible viral infection or reaction to vaccination) for ongoing symptoms with fever discussed with Dr Mora and will get lumbar puncture and consult neurology for tomorrow for follow up (2) Fever: Plan: As above Follow up blood cultures, anaplasmosis, ehrlichiosis, lumbar puncture Admission and Anticipated Discharge Date Admission Date: May 19, 2021 Subjective Feels he has ongoing mild expressive dysphasia. Confirmed by his partner at bedside that he is off his baseline. 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 Can talk in full sentences but gets stuck frequently. Feels similar to the day after he had a Tetanus and shingles vaccination 10 days ago. Initially improved after this. Fever returned on . Overnight he felt chills and had another recorded fever of 38 degrees celsius. No rash, joint aches, generalized confusion, head trauma, loss of balance, weakness, facial droop, change in vision, hearing or taste. No infective symptoms of nasal congestion, sore throat, chest pain, shortness of breath, dysuria, areas of cellulitis. Travel history: in [place] for conference May 05, [place] returned on April 02. Multiple negative COVID-19 tests negative since. Review of Systems Review of Systems: Frozen shoulder since November under Dr Ferrara (last cortisone shot 1 month ago) getting better Physical Exam Constitutional: WD/WN, vitals as above Eyes: PERRL, conjunctivae normal, anicteric sclerae Respiratory: normal respiratory effort, lungs clear to auscultation Auscultation: no crackles, no rales, no rhonchi and no wheezes Cardiovascular: Rate/Rhythm: regular rate and regular rhythm Heart Sounds: no gallop, no murmur and no cardiac rub Vessels: normal peripheral pulses; no JVD Extremities: normal capillary refill; no calf tenderness and no pedal edema Gastrointestinal (Abdomen): Inspection/Auscultation: normal bowel sounds; abdomen not distended Percussion/Palpation: abdomen soft; abdomen nontender and no guarding Musculoskeletal: no cyanosis or clubbing, extremities motor strength 5/5 Skin: no rashes, warm and dry Neurologic: CN's II-XI intact bilaterally, moves all extremities and awake; no focal motor deficits and not confused Speech / Cognition: + expressive aphasia (mild); no receptive aphasia Motor/Sensory: no tremor and no pronator drift Psychiatric: Orientation: alert and oriented x 3 Genitourinary: no CVA tenderness Results & Data Results & Data ([facility]) Vital Signs (Past 12 Hours) Vital Signs Temp Pulse Pulse Resp BP Pulse Ox 05/20/21 08:03 36.6 C 68 18 146/83 H 96 05/20/21 07:23 58 L 05/20/21 02:20 37.3 C 90 18 120/75 94 05/20/21 00:42 38.0 C H 83 20 127/70 95 PG Care Time/CCT Total # of Minutes Spent Total Time Spent with Patient: Total time spent is greater than 50% in coordination of care (as documented) at patient's floor/unit and/or counseling patient: Coding Level of Care Code 31724 Subseq Obs Care Lvl 3 Diagnoses Expressive aphasia R47.01 Fever R50.9
[2021-05-20 14:03] LABS: Lyme Ab IgG w/WB Rflx Negative (Negative)
[2021-05-20] MEDS ORDERED: GADOBUTROL 30ML VIAL IV ONE (14:03)
[2021-05-20 14:09] LABS: Lyme Ab IgM w/WB Rflx Negative (Negative)
--- NOTE | 2021-05-20 14:46 | Magnetic Resonance Report ---
MRI OF THE BRAIN WITHOUT AND WITH IV CONTRAST CLINICAL HISTORY: transient aphasia COMPARISON STUDY: Head CT and CTA of the head May 19, 2021 TECHNIQUE: Utilizing a 1.5 Adore magnet and dedicated coil, multiplanar, multiecho imaging of the br ain was performed pre and postcontrast administration. IV administration of 10.5 mL of Gadavist cont rast was uneventful. FINDINGS: There are no foci of restricted diffusion to suggest acute infarct. No acute intracranial h emorrhage, midline shift or mass effect is present. Brain volume is normal. Ventricular system is nor mal. Basilar cisterns are patent. There are no extra-axial collections. Flow-voids for the major intr acranial vessels are present. There is no intracranial mass or pathologic enhancement. IMPRESSION: 1. No acute intracranial findings. 2. No intracranial mass or pathologic enhancement. ACT 112: Negative or not required by law. Electronically signed by: Roberto De La Cruz M.D. 05/20/2021 2:45 PM
--- NOTE | 2021-05-20 19:55 | Billing Data ---
Date of Service May 20, 2021 Coding Level of Care Code INT OBSERVATION CARE 70M LVL 3
--- NOTE | 2021-05-20 20:55 | Fluoroscopy Report ---
FLUOROSCOPICALLY GUIDED LUMBAR PUNCTURE CLINICAL HISTORY: expressive dysphasia FLUOROSCOPY TIME: 0.4 minutes. NUMBER OF FLUOROSCOPIC IMAGES: 2 PROCEDURE: The procedure, risks and benefits were discussed with the patient including the risk of s romana headache, bleeding and infection. The patient agreed to the procedure and informed written cons ent was obtained. The procedure was performed by Dr. De La Cruz following a timeout. The right L3-L4 i nterlaminar space was targeted. Skin overlying the space was prepped and draped in sterile fashion an d local anesthesia was achieved with 1% lidocaine. Under intermittent fluoroscopic guidance, a 5 inch , 22-gauge spinal needle was directed into the thecal sac with immediate return of clear CSF. A total of 8 cc of cerebrospinal fluid was collected in 4 vials and sent to the laboratory as ordered. The n eedle was removed. The patient tolerated the procedure well and no immediate complications were evide nt. IMPRESSION: Successful fluoroscopically guided lumbar puncture with collection of 8 cc of cerebrospin al fluid which was sent to the laboratory for analysis. ACT 112: Negative or not required by law. Electronically signed by: Roberto De La Cruz M.D. 05/20/2021 8:54 PM
[2021-05-20 21:09] LABS: Appearance CSF Clear; CSF Count Tube # 3; CSF Xanthrochromic No xanthochromia; Color CSF Colorless; Red Blood Cell CSF (A) 2 /uL (0-); Red Blood Cell CSF (B) 1 /uL (0-); White Blood Cell CSF (A) 1 /uL (0-5); White Blood Cell CSF (B) 2 /uL (0-5)
[2021-05-20 21:23] LABS: CSF Glucose 61 mg/dl (40-70)
[2021-05-20 21:30] LABS: Lactate CSF 1.8 mmol/L (0.6-2.2)
[2021-05-20 21:32] LABS: CSF Chemistry Tube # 1
[2021-05-20 22:27] LABS: Cryptococcus neoformans/ga PCR Not Detected (NotDetected); Cytomegalovirus PCR Not Detected (NotDetected); Enterovirus PCR Not Detected (NotDetected); Escherichia coli K1 PCR Not Detected (NotDetected); Haemophilius influenzae PCR Not Detected (NotDetected); Herpes Simplex Virus 1 PCR Not Detected (NotDetected); Herpes Simplex Virus 2 PCR Not Detected (NotDetected); Human Herpes Virus 6 PCR Not Detected (NotDetected); Human Parechovirus PCR Not Detected (NotDetected); Listeria monocytogenes PCR Not Detected (NotDetected); Neisseria meningitidis PCR Not Detected (NotDetected); Streptococcus agalactiae PCR Not Detected (NotDetected); Streptococcus pneumoniae PCR Not Detected (NotDetected); Varicella Zoster Virus PCR Not Detected (NotDetected)
[2021-05-20] MEDS: ACETAMINOPHEN 325 MG TAB PO PRN (23:17)
[2021-05-21 06:30] LABS: Basophils # (auto) 0.05 K/uL (0-0.2); Basophils % (auto) 0.6 %; Eosinophils # (auto) 0.55 K/uL (0-0.5); Eosinophils % (auto) 6.5 %; Hematocrit (blood only) 42.9 % (42-52); Hemoglobin 14.9 g/dL (14.0-18.0); Immature Granulocytes # (auto) 0.06 K/uL (0.00-0.02); Immature Granulocytes % (auto) 0.7 %; Lymphocytes # (auto) 2.71 K/uL (1.2-3.4); Mean Corpuscular Hemoglobin 30.8 pg (25-34); Mean Corpuscular Hgb Conc 34.7 g/dL (32-36); Mean Corpuscular Volume 88.6 fL (80-100); Mean Platelet Volume 9.1 fL (7.4-10.4); Monocytes # (auto) 1.08 K/uL (0.11-0.59); Monocytes % (auto) 12.8 %; Neutrophils # (auto) 4.01 K/uL (1.4-6.5); Neutrophils % (auto) 47.4 %; Platelet Count 208 K/uL (130-400); RDW Coefficient of Variation 12.6 % (11.5-14.5); RDW Standard Deviation 40.2 fL (36.4-46.3); Red Blood Count 4.84 M/uL (4.7-6.1); White Blood Count 8.46 K/uL (4.8-10.8)
[2021-05-21 06:56] LABS: BUN Creatinine Ratio 11.5 (10-20); Calcium 8.9 mg/dl (8.5-10.1); Creatinine Clr Calc Pharmacy 115.5 ml/min; Est GFR (African American) 107.5 ml/min; Est GFR (Non-African American) 92.7 ml/min; Potassium 4.1 mmol/L (3.5-5.1)
--- NOTE | 2021-05-21 09:47 | Neurology Consultation ---
Date of Consultation May 21, 2021 Assessment & Plan (1) Expressive aphasia: (2) Headache: (3) Fever: patient head the onset of nonspecific word-finding difficulties ( intermittent over 2-3 days ) 1 week following shingles and tetanus vaccines. He did not have encephalopathy or cognitive issues, focal findings, or meningeal signs. He did have some mild fever early in his hospital stay, mildly elevated sed rate and CRP, and a mildly elevated CSF protein. He did not any sign infect ion and he seems back to baseline today including his speech. Given his mild hypertension and mild bitemporal nonspecific headache vasospasm causing temporary word-finding difficulty cannot be excluded. I suspect he has had delayed inflammatory reaction of a nonspecific nature to the shingles vaccine. There was no actual encephalitis or encephalopathy Recommendations: 1. I see no need for additional neurologic testing or treatment. 2. I can follow up as an outpatient, if needed. Overall, spent a total of 70 minutes with this case including review of records, review of MRI films, direct evaluation of the patient, and discussion of the case with the patient at bedside, RN at bedside, and Dr. Pruitt, including differential diagnosis and treatment options History of Present Illness Reason for Consultation: Patient is a 61-year-old, who I was asked to see at the request of Dr. hernandez, for neurologic evaluation regarding speech and cognitive issues. Requesting Physician: Dr. Pruitt Attending Physician: Clay Pruitt MD History of Present Illness patient tells me that he has had a little bit of hypertension in the past but really is not being treated for this issue and has no other significant medical problems. He has no diabetes, heart disease, or stroke in the past. Patient used to smoke cigarettes quitting 17 years ago. He continues to do nicotine gum and occasionally chews tobacco. He notes that when he chews tobacco or uses nicotine gum, his blood pressure will go up. Ten days ago he received the shingles vaccine and a tetanus booster shot. Her for the next 24 hours he had fever, headache, nausea, and a sore arm at the injection site. He saw his family doctor, Dr. Hillman. The 2nd day after the vaccine and over the next several days after that, he was feeling back to baseline with no symptoms. On May 18 he started noticing being a little feverish and feeling a little "flat". He was sleeping a little more than usual. On May 19 he was taking a nap and woke up around to in the afternoon and noticed that he could not get words out. He knew what he wanted to say but he would only make grunts or noises. This would come and go alternating between able to get words out and not able to get words out. He had no cognitive issues or confusion. He had no vision problems, balance issues, incontinence, weakness, or numbness of the limbs. He had a little bit of an bitemporal achy headache that day and May 20. He arrived to the emergency room May 19 at 1648, with a temperature of 36.7, pulse 96 and regular, respiratory 20, blood pressure 149/89, and O2 saturation 97 percent. On neurologic examination and no focal finding or speech issues. CBC and Chem profile were unremarkable. Sed rate was 30 and CRP was 0.34. TSH was normal. Urinalysis and Lyme antibody titers were unremarkable. CT scan of the head was unremarkable. CT angiography of the head and neck were unremarkable no vascular stenoses or abnormalities. MRI of the brain was unremarkable with no abnormalities were stroke. I reviewed these films. Lumbar puncture on 05-20, was performed and showed 1 white cell, 2 red cells, protein of 56.9, and negative by a fire. Gram stain was negative. Patient was febrile sometime on May 19 and May 20. Today he is afebrile blood pressure is 131/86. Today he feels asymptomatic and is not any word-finding difficulties. He does not have a headache. Allergies Allergy/AdvReac Type Severity Reaction Status Date / Time No Known Allergies Allergy Mild NONE Unverified 05/19/21 18:09 Home Medications Medication Instructions Recorded Confirmed Type sildenafil 50 mg tablet 25 - 50 mg PO UD PRN 05/19/21 05/19/21 History Patient History Surgical History (Updated 05/21/21 @ 10:30 by Neri Mora MD) H/O wisdom tooth extraction Family History Mother , age 84 heart disease Heart disease Dementia Father , age 78 renal failure from metastatic squamous cell cancer of the skin No problems noted. 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 Other Information That Helps Us Care for You: No Feels Safe at Home: Yes Safety Concerns: Feels Safe At This Time Assistive Devices: Glasses Review of Systems Constitutional: no fever, no fatigue and no weakness Eyes: no diplopia, no eye pain and no worsening vision Ear, Nose, Mouth, Throat: no ear pain, no tinnitus, no hearing loss, no dizziness, no snoring, no hoarseness and no dysphagia Respiratory: no cough and no dyspnea Cardiovascular: no chest pain, no palpitations and no lightheadedness Gastrointestinal: no abdominal pain, no nausea and no vomiting Musculoskeletal: no back pain, no neck pain, no radicular pain, no joint pain and no myalgia Integumentary: no rash and no lesions Neurologic: no gait abnormality, no localized weakness, no generalized weakness, no tingling, no numbness, no tremor(s), no abnormal movements, no headache(s), no abnormal speech, no confusion and no memory loss Psychiatric: no depression, no irritability, no anxiety, no difficulty concentrating, no confusion and no hallucinations Endocrine: no fatigue and no flushing Hematologic / Lymphatic: no easy bleeding and no easy bruising Allergy / Immunological: no urticaria and no problem reported Exam (Neuro) Physical Exam: The patient is right-handed. The patient is awake, alert, and attentive. Speech is normal without any aphasia or dysarthria. The patient can name objects, repeat phrases, and has normal spontaneous speech. Mentation and thought processes are intact, with orientation to person, place and time, and normal fund of knowledge. Attention and concentration are normal. Mood and affect are normal and appropriate. General appearance and grooming are normal. Short and long-term memory are intact. I note no word-finding difficulties the entire time we had the interview and exam. Pupils are 3 mm bilaterally and reactive to light. Extraocular eye muscles are intact without nystagmus. Visual acuity and visual piña seem normal grossly to confrontation. There are no deficits to sensation in the face in all 3 distributions of the fifth cranial nerve bilaterally. Corneal reflexes are positive bilaterally. Facial strength and symmetry was normal bilaterally. Hearing seems normal bilaterally. Palate moves well without asymmetry. There is normal sternocleidomastoid and trapezius (shoulder shrug) strength bilaterally. Tongue is midline with good strength bilaterally. Neck has a full range of motion without discomfort. There are no cervical bruits bilaterally. There are no cranial or ocular bruits. Heart is without murmur. There is a regular rhythm and rate. Cervical, thoracic, and lumbar spine are nontender to palpation. Gait is not tested but stance sitting up in bed is quite normal With outstretched arms there is no drift. There are no resting, postural, or action tremors. There is no ataxia with finger to nose testing. There is good facility in the hands. No other abnormal involuntary movements are noted. Motor strength is 5/5 diffusely in the arms bilaterally including deltoids, biceps, triceps, brachioradialis, wrist flexors and extensors, cart pusher, and intrinsic hand muscles. Motor strength is 5/5 diffusely in the legs bilaterally including hip flexors, quadriceps, hamstrings, gastrocnemius, tibialis anterior, tibialis posterior, and Peroneii muscles. Toe extensors are normal and there is good bulk in the extensor digitorum brevis muscles bilaterally. The limbs have good tone without rigidity or spasticity. There is no atrophy noted in the muscles. Muscle bulk is normal, there is no tenderness to palpation, no myotonia to percussion, and no fasciculations seen. Sensory examination is intact to touch and pin throughout all 4 limbs diffusely. Reflexes are 1/4 in the biceps, triceps, brachioradialis, quadriceps, and Achilles tendons bilaterally. There is no clonus bilaterally. Results & Data ([facility]) Vital Signs (Past 12 Hours) Vital Signs Temp Pulse Pulse Resp BP Pulse Ox 05/21/21 07:56 36.9 C 86 20 131/86 97 05/21/21 07:29 73 05/21/21 04:00 36.8 C 65 18 135/86 96 05/20/21 23:02 37.3 C 81 18 151/93 H 99 05/20/21 22:20 81 PG Care Time/CCT Total # of Minutes Spent Total Time Spent with Patient: Total time spent is greater than 50% in coordination of care (as documented) at patient's floor/unit and/or counseling patient: Coding Level of Care Code 38478 Office/OBS Consult Lvl 5 Diagnoses Expressive aphasia R47.01 Fever R50.9 Headache R51.9 Time Spent (min) 70
[2021-05-21] MEDS ORDERED: STROKE PATIENT DISCHARGE STA (10:52)
--- NOTE | 2021-05-21 10:55 | Discharge Summary ---
Date of Service May 21, 2021 Admission HPI Per Admitting Provider Damian Medina is a 61-year-old male with no significant past medical history who presents for concerns of worsening word finding and speech difficulty over the last 36 hours. Started to notice that he was feeling off sometime afternoon, but generally felt nothing of it. It was not until earlier today when his noticed that he was having difficulty finding words, this caused him significant frustration as he knew the words that he was attempting to say but could not seemingly find them to verbalize. She mostly noticed that he was seemingly only having difficulty with some words, with the rest of his speech being unchanged. Notes that during the day he was feeling achy all over and questionably warm/febrile, but did not have a fever at that point. As a result of this he took a home COVID-19 test which he states come back as negative. As well as, tested negative for COVID-19 in the ED. While in ED, he noticed most of his speech had seemingly returned back to normal, but intermitt ently with seemingly random specific words he just would not be able to get them out. Denies any recent stressors, or changes. 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 Principal Diagnosis Transient expressive dysphasia - possibly as a reaction to the shingles vaccination Discharge Exam Constitutional WD/WN, vitals as above Eyes PERRL, conjunctivae normal, anicteric sclerae Respiratory normal respiratory effort, lungs clear to auscultation Auscultation: no crackles, no rales, no rhonchi and no wheezes Cardiovascular Rate/Rhythm: regular rate and regular rhythm Heart Sounds: no gallop, no murmur and no cardiac rub Vessels: normal peripheral pulses; no JVD Extremities: normal capillary refill; no calf tenderness and no pedal edema Gastrointestinal (Abdomen) Inspection/Auscultation: normal bowel sounds; abdomen not distended Percussion/Palpation: abdomen soft; abdomen nontender and no guarding Musculoskeletal no cyanosis or clubbing, extremities motor strength 5/5 Skin no rashes, warm and dry Neurologic CN's II-XI intact bilaterally, moves all extremities and awake; no focal motor deficits and not confused Speech / Cognition: + expressive aphasia (mild); no receptive aphasia Motor/Sensory: no tremor and no pronator drift Psychiatric Orientation: alert and oriented x 3 Genitourinary no CVA tenderness Discharge Data Allergies Allergy/AdvReac Type Severity Reaction Status Date / Time No Known Allergies Allergy Mild NONE Unverified 05/19/21 18:09 Consultations 05/19/21 19:58 ED Decision to Admit Stat 05/20/21 15:48 Consult Neurology Routine Ordered Studies 05/19/21 17:39 CT angio head w con Stat CT angio neck with con Stat CT head/brain wo con Stat IMPRESSION: 1 There is no hemorrhage, mass effect, or evidence of acute territorial ischemia by CT criteria. 2. Unremarkable CT angiogram of the brain. 3. Unremarkable CT angiogram of the neck. 05/20/21 08:00 MR brain wo/w con Routine IMPRESSION: 1. No acute intracranial findings. 2. No intracranial mass or pathologic enhancement. 05/20/21 15:53 FL lumbar puncture diagnostic Routine Hospital Course (1) Expressive aphasia: (2) Fever: Damian Medina is a 61 year old male observed at [facility] from May 19 - 2020 due to transient expressive dysphasia. Workup including CT head, angiogram head/neck and MRI brain which did not show any stroke. Lumbar puncture was negative for meningitis but showed mildly increased protein. He will follow up with neurology for outstanding lumbar puncture results. Possible symptoms are delayed inflammatory reaction to the shingles vaccine. He was reviewed by neurology and no specific treatment is recommended and symptoms have mostly resolved at this time. Total Time Total Time Spent Total Time Spent (In Minutes): 35 Discharge Plan Discharge Items Patient Disposition: Home - Self-Care Reason For Visit: TRANSIENT APHASIA Discharge Diagnosis: Transient expressive dysphasia - possibly as a reaction to the shingles vaccination Activity: Resume your previous activity Non-emergency contact: Primary Care Provider Call non-emergency contact if: you have any medication questions and your symptoms worsen Follow-up/Referrals: Neri Mora MD [Physician] - (4-6 weeks for hospital follow up) Clay Hillman MD [Primary Care Provider] - Diet: Regular Addtl Attending Provider Instructions: You were observed at [facility] from May 19 - 2020 due to transient expressive dysphasia. Workup including CT head, angiogram head/neck and MRI brain did not show any stroke. Lumbar puncture did not show any meningitis however protein levels were mildly elevated. Some tests are outstanding on discharge, please follow up with neurology or your primary care provider for results of these. Possibly your symptoms are due to reaction to the shingles vaccine causing a mild inflammatory response. No specific treatment is recommended for this. Recommend following up with neurology as an outpatient in 4-6 weeks however if your symptoms are fully resolved feel free to cancel this appointment. Kind regards, Dr Clay Pruitt Pending Studies at Discharge: Yes Stand-Alone Forms: My [facility] [address], Smoking Cessation Medications and DC Order Prescriptions: Continued sildenafil 50 mg tablet 25 - 50 mg PO UD PRN (Reason: Edema) RF: 0 Discharge Orders: Discharge Order (Routine); Ordered 05/21/21 Ordered By: Clay Pruitt Admission Data Admit Date/Time: 05/19/21 20:44 Attending Provider: Clay Pruitt Admit Provider: Lyle Honeycutt Primary Care Provider: Clay Hillman Other Providers: Rico Carroll ; Neri Mora Other Interventions: Discharge Summary Assessment (RN) Last Done: 05/21/21 11:16 Coding Level of Care Code 38983 OBS Care - Discharge Diagnoses Expressive aphasia R47.01 Fever R50.9
--- NOTE | 2021-05-22 10:23 | Electrocardiogram Report ---
Test Reason : Blood Pressure : / mmHG Vent. Rate : 085 BPM Atrial Rate : 085 BPM P-R Int : 134 ms QRS Dur : 090 ms QT Int : 368 ms P-R-T Axes : 037 030 032 degrees QTc Int : 437 ms Sinus rhythm with Premature atrial complexes Otherwise normal ECG No previous ECGs available Confirmed by Freddy Baptiste ([id number]) on 05/22/2021 10:23:21 AM Referred By: REFERRED SELF Confirmed By:Freddy Baptiste
[2021-05-25 01:06] LABS: Ehrlichia chaff DNA Bld Negative (Negative)
== END 2021-05-21 11:38 | disposition home or self-care (01) ==
LOC: ED 16:38 → 2W 16:38 → SUATTDRO 20:44 → 2W 21:08
DX: Z87.891 Personal history of nicotine dependence; Z79.899 Other long term (current) drug therapy; R47.01 Aphasia; R51.9 Headache, unspecified; R50.9 Fever, unspecified